=== PATIENT | male | born 1985 | race African-American/Black ===

== ENCOUNTER 2021-02-19 21:34 | Emergency (ER) | payer OTHER ==
[~2021-02-19] VITALS: Ht 170.2 cm; Wt 68.0 kg
[2021-02-19] MEDS ORDERED: BICT1TAB PO (21:50)
--- NOTE | 2021-02-19 22:38 | NUR ---
ERMD AT BEDSIDE TO EVAL.
[2021-02-19] MEDS ORDERED: OLANZAPINE 5 MG TABLET PO ONE (23:00)
[2021-02-19] MEDS ORDERED: OLANZAPINE 5 MG TABLET ONE (23:05)
--- NOTE | 2021-02-19 23:17 | NUR ---
Pt provided urine sample, sent to lab.
[2021-02-19 23:18] LABS: MEAN CORPUSCULAR VOLUME 91.6 fL (73.0-96.2); PLATELET COUNT (AUTO) 269 K/uL (152-348)
[2021-02-19 23:19] LABS: ETHANOL < 3 MG/DL (0-0)
[2021-02-19 23:20] LABS: CARBON DIOXIDE 28 mmol/L (21-32); CHLORIDE 104 mmol/L (98-107); CREATININE 1.1 mg/dL (0.6-1.3); GLUCOSE 105 mg/dL (74-106); POTASSIUM 3.4 mmol/L (3.5-5.1); UREA NITROGEN, BLOOD 23 mg/dL (7-18)
[2021-02-19 23:25] LABS: ALANINE AMINOTRANSFERASE 16 U/L (16-63); ALKALINE PHOSPHATASE 59 U/L (50-136); ASPARTATE AMINOTRANSFERASE 23 U/L (15-37); BILIRUBIN,DIRECT 0.2 mg/dL (0.0-0.2); BILIRUBIN,TOTAL 0.8 mg/dL (0.2-1.0)
[2021-02-19 23:30] LABS: THYROID STIMULATING HORMONE 1.783 mIU/mL (0.358-3.740)
[2021-02-19 23:33] LABS: *BILIRUBIN,URIN 1+ (NEGATIVE); *BLOOD, URINE NEGATIVE (NEGATIVE); *CLARITY,URINE CLEAR (CLEAR); *COLOR,URINE YELLOW (YELLOW); *KETONES,URINE 2+ (NEGATIVE); LEUKOCYTE ESTERASE ,URINE NEGATIVE (NEGATIVE); NITRITE, URINE NEGATIVE (NEGATIVE); UGLUCOSE NEGATIVE (NEGATIVE)
[2021-02-19 23:43] LABS: ACETAMINOPHEN < 2.0 ug/mL (10-30)
[2021-02-19 23:47] LABS: BACTERIA,URINE NONE SEEN /HPF (NONE SEEN); RBC,URINE 0-3 /HPF (0-3); SQUAMOUS EPITHELIAL CELL,UR FEW /HPF (NONE SEEN); WBC,URINE 0-3 /HPF (0-3)
[2021-02-19 23:50] LABS: *AMPHETAMINE, URINE POSITIVE (NEGATIVE); *CANNABINOID, URINE POSITIVE (NEGATIVE); *COCCAINE, URINE NEGATIVE (NEGATIVE); *OPIATE, URINE NEGATIVE (NEGATIVE); *PHENCYCLIDINE SCREEN,URINE NEGATIVE (NEGATIVE)
[2021-02-20] MEDS ORDERED: LORAZEPAM 1 MG TABLET ONE (01:32)
[2021-02-20] MEDS ORDERED: LORAZEPAM 0.5 MG TABLET PO ONE (01:45)
--- NOTE | 2021-02-20 07:30 | NUR ---
PT REQUESTED TO SEE THE DRAWBENCH OPERATOR HELPER.
--- NOTE | 2021-02-20 08:00 | NUR ---
called director social welfare and left a message.
--- NOTE | 2021-02-20 08:03 | NUR ---
called stuart sanabria for psych eval per md order. stuart said that the pt can go on voluntery basis.
--- NOTE | 2021-02-20 08:14 | NUR ---
breakfast provided for pt.
--- NOTE | 2021-02-20 09:00 | NUR ---
POULTRY PATHOLOGIST WORKING ON THE PT'S CASE.
--- NOTE | 2021-02-20 10:00 | NUR ---
SERVICE COUNTER CASHIER AT BEDSIDE TALKING TO PT.
--- NOTE | 2021-02-20 11:31 | NUR ---
Clinical Social Work note SW consult was requested for suicidal ideation. Patient is a 35 year old male who is alert and oriented x3. Patient presents with a paranoid delusions and a labile affect. Patient was hard to understand as he spoke very softly and at moments he would whisper. Patient had a hard time staying on topic and would jump from one topic to another one. Patient stated that he did not have any thoughts of wanting to end his life, but he did not feel safe leaving and that there were people who wanted to hurt him and his family. Patient stated that he wants to be in a better reality. Patient stated that he has no support system. Patient stated that he wanted to be discharged to [facility]. TRISTA spoke with Lori at [facility] [phone], who provided information regarding referral process. Patient does not qualify for recuperative care as he is medically clear. TRISTA spoke with Wojciech at [facility] [phone] to discuss patient going there voluntarily. TRISTA will fax Wojciech necessary information. SW informed patient the barriers with [facility] and informed patient of his options. Patient stated that he would like to continue as a voluntary admission to [facility]. Patient stated again that he did not feel safe leaving the hospital. SW inquired about patients substance use, but patient was not able to verbalize with TRISTA as he was not speaking clearly and could not answer. Patient stated that he has been living in a custodial before being at the hospital, but did not recall for how long he has been homeless. Upon toxicology screening patient tested positive for Cannabinoids and Amphetamines. Plan: TRISTA will continue to work with Wojciech at [facility] to find a bed for patient.
--- NOTE | 2021-02-20 12:30 | NUR ---
lunch provided for pt.
--- NOTE | 2021-02-20 15:22 | NUR ---
ART FROM [facility]TA[facility] CALLED WITH THE FOLLOWING INFO; RECIEPERCY WERNER, REPORT NUMBER [phone], ROOM WILL BE ASSIGNED AT THE [facility].
--- NOTE | 2021-02-20 15:28 | NUR ---
CALLED [facility], ETA 60 MINUTES.
--- NOTE | 2021-02-20 16:20 | NUR ---
[facility] AT BEDSIDE TO TRNASFER THE PT TO [facility]. PT REMAINED CALM AND COOPERATIVE THE WHOLE ER STAY. AMBULATED TO BATHROOM COUPLE OF TIMES WITH STEADY GAIT.
== END 2021-02-20 16:35 ==
LOC: ER 22:00
DX: F23 Brief psychotic disorder (principal); R45.851 Suicidal ideations; T43.621A Poisoning by amphetamines, accidental (unintentional), initial encounter; G92.9 Unspecified toxic encephalopathy; Y92.414 Local residential or business street as the place of occurrence of the external cause; Z59.02 Unsheltered homelessness; Z82.49 Family history of ischemic heart disease and other diseases of the circulatory system; Z20.822 Contact with and (suspected) exposure to COVID-19; E87.6 Hypokalemia; F17.200 Nicotine dependence, unspecified, uncomplicated
CPT/HCPCS: 36415; 84443; 85025; A4663; G0480